=== PATIENT | female | born 2000 | race Caucasian/White ===

== ENCOUNTER 2020-03-26 19:20 | Emergency (ER) | payer MEDICAID, SELFPAY ==
[2020-03-26 19:30] VITALS: BP 114/76; PULSE 67; RESP 16; TEMP 36.4; O2SAT 99; BMI 30.9
--- NOTE | 2020-03-26 19:44 | XRR_ITS ---
PROCEDURE INFORMATION: Exam: XR Right Hand Exam date and time: 03/26/2020 8:00 PM Age: 19 years old Clinical indication: Pain; Hand; Right; Additional info: Fb and pain RT hand not acute TECHNIQUE: Imaging protocol: XR Right hand. Views: 3 or more views. COMPARISON: No relevant prior studies available. FINDINGS: Bones/joints: Normal. Soft tissues: No soft tissue foreign body. XR/XR hand RT min 3V* [id number] IMPRESSION: No acute findings.
--- NOTE | 2020-03-26 19:45 | ED_ITS ---
HPI - Extremity Problem General: Chief complaint: Extremity Injury, Upper Stated complaint: rt hand/fall/ healed with foreign object Time Seen by Provider: 03/26/20 19:23 Source: patient and family (father) Mode of arrival: ambulatory Limitations: no limitations History of Present Illness: HPI Narrative: 19-year-old female patient presents to the emergency department with right hand problem. She reports approximately 1 month ago, fell with her right arm extended, she sustained a laceration and gravel into the proximal palm of the right hand. The wound has now healed. She reports mild discomfort when she presses on the area, questions of foreign body remains in the right hand. She denies fever chills or redness to the area. MD Complaint: extremity pain Location: right and upper extremity (hand) Quality: aching and dull Radiation: none Relieving factors: other (not to press on the area) Exacerbating factors: other (pressing on the affected site) Associated symptoms: Reports no associated symptoms; Deny chest pain, fever(s) or rash Review of Systems General: Reports: 10 or more systems reviewed and unremarkable except in HPI and below Const: Denies: fever(s), chills or diaphoresis Eyes: Denies: blurry vision or eye redness ENMT: Denies: throat pain, dental pain or disequilibrium Card: Denies: chest pain, palpitations or irregular heart rhythm Resp: Denies: dyspnea, productive cough, non-productive cough or wheezing GI: Denies: abdominal pain, nausea or vomiting : Denies: difficulty voiding or dysuria Musc: Reports: extremity pain (proximal central rt hand); Denies: neck pain, back pain, extremity swelling, joint swelling, joint stiffness, muscle cramps or muscle weakness Skin/Breast: Denies: rash or pruritus Neuro: Denies: headache(s), weakness in extremities or behavioral changes Psych: Denies: anxiety or depression Gabriel/Lymph: Denies: easy bruising PFSH ED PFSH: Medical History (Updated 03/26/20 @ 20:19 by KAYE Wild) Post-traumatic stress disorder, chronic Surgical History (Updated 03/26/20 @ 19:47 by KAYE Wild) No pertinent past surgical history Social History (Updated 03/14/19 @ 11:18 by Mariella Gant LPN) Smoking and tobacco status: never smoked Second hand smoke exposure: No Alcohol intake: never History of recent travel: No Female Reproductive History: Date of last menstrual period: 03/24/20 Physical Exam Const: COMMON NORMALS: no acute distress, patient oriented x3, healthy ap pearing and alert GENERAL APPEARANCE: cooperative, comfortable and well hydrated HENMT: COMMON NORMALS: normocephalic, Normal external nose present and moist oral mucous membranes HEAD & SCALP: normocephalic NOSE: Normal external nose present Eye: COMMON NORMALS: Equal, round and reactive pupils present and EOMs intact bilaterally GENERAL EYE: appearance normal, both eyes and all related structures PUPIL: Yes Equal, round and reactive pupils present Neck/C-Spine: COMMON NORMALS: full ROM and no lymphadenopathy GENERAL: Yes normal visual inspection and Yes trachea midline CERVICAL SPINE: Yes cervical ROM normal Lymph: LYMPHATIC: no lymphadenopathy noted Chest: COMMONS NORMALS: normal inspection of the chest Resp: COMMON NORMALS: normal respiratory effort and clear to auscultation b ilaterally AUSCULTATION: clear to auscultation bilaterally Cardio: COMMON NORMALS: regular rhythm, S1 normal heart sound present and S2 normal heart sound present RHYTHM: regular rhythm HEART SOUNDS: S1 normal heart sound present and S2 normal heart sound present GI: COMMON NORMALS: Soft to palpation and non-tender INSPECTION: Yes normal to inspection PALPATION: Yes Soft to palpation : COMMON NORMALS: Yes no CVA tenderness BLADDER/KIDNEY EXAM: Yes no CVA tenderness Back/Pelvis: COMMON NORMALS: no CVA tenderness and thoracic and lumbar spine normal to inspection Extremity: COMMON NORMALS: normal to inspection, full ROM, capillary refill normal, no clubbing, cyanosis or edema, no calf tenderness and no pedal edema GENERAL: Yes normal exam except as noted LEFT UPPER EXTREMITY: Yes hand & digits Left hand and digits: Yes inspection (healed wound to the proximal palm, central, no erythema/ FB with palp), Yes palpation (normal), Yes ROM (full supination/pronation/flexion/extension to all digits and hand/wrist), Yes neurovascular exam (distally intact) and Yes tendon exam Neuro: COMMON NORMALS: patient oriented x3 and no focal motor deficits SE NSORIUM/ORIENTATION: Yes alert Psych: COMMON NORMALS: mental status grossly normal, Normal thought process present and cooperative ACTIVITY/MOTOR BEHAVIOR: Yes appropriate eye contact THOUGHT PROCESS: Normal thought process present Skin: COMMON NORMALS: no rashes or lesions noted, no wounds, turgor normal and no mottling GENERAL SKIN EXAM: no rashes or lesions noted, elasticity normal, turgor normal, no ecchymo and scars (rt proximal palm) Course Vital Signs: Vital signs: Vital Signs Temperature 97.5 F L 03/26/20 19:30 Pulse Rate 67 03/26/20 19:30 Respiratory Rate 16 03/26/20 19:30 Blood Pressure 114/76 03/26/20 19:30 Pulse Oximetry 99 03/26/20 19:30 MDM - Extremity (Nontraumatic) Imaging Data^: Xray Ortho: My impression: Right hand series; radiopaque object noted at the proximal first MCP, visualized on dorsal views, not appreciated on lateral view. Radiology interpretation pending. No acute fracture appreciated. Discharge Plan Discharge Patient Disposition: Home Clinical Impression: Foreign body hand Qualifiers: Encounter type: initial encounter Laterality: right Qualified Code(s): S60.551A - Superficial foreign body of right hand, initial encounter Condition: Stable Prescriptions: No Action No Known Home Medications RF: 0 Discharge Orders: Discharge ED (Routine); Ordered 03/26/20 Ordered By: Lexus Woods Referrals: Isauro Crowe FNP [Primary Care Provider] - Discharge Diet: Usual diet Discharge Activity: Resume usual activity Patient Instructions: Soft Tissue Foreign Body (ED), Opioid Safety Activity Restrictions/Additional Instructions: Return to the emergency department for concerning symptoms Continue follow-up with your primary care, in the next 7 to 10 days, avoid pre ssure on the area Return to the emergency department if you develop inability to move your wrist or redness swelling to the area. Coding Level of Care Code ED Break Off Worker for Ady Fwd Exam Comprehensive
== END 2020-03-26 20:25 | disposition home or self-care (01) ==
PROVIDERS: Emergency Provider Nurse Practitioner Family; PCP Nurse Practitioner Family
DX: S60.551A Superficial foreign body of right hand, initial encounter (principal); W18.30XA Fall on same level, unspecified, initial encounter
CPT/HCPCS: 12345; 73130; 99281; 99282

== ENCOUNTER → 2022-02-03 10:59 | Outpatient (BNVA) | payer MEDICAID, SELFPAY | PROVIDERS: PCP Family Medicine; Visit Provider Family Medicine | DX: D64.9 Anemia, unspecified (principal); Z13.1 Encounter for screening for diabetes mellitus | CPT/HCPCS: 80053; 83540; 83550; 85025 ==

== ENCOUNTER → 2024-01-25 14:36 | Outpatient (BNVA) | payer MEDICAID, SELFPAY | PROVIDERS: PCP Family Medicine; Visit Provider Family Medicine | DX: Z13.6 Encounter for screening for cardiovascular disorders (principal); Z13.1 Encounter for screening for diabetes mellitus; D50.0 Iron deficiency anemia secondary to blood loss (chronic); N92.6 Irregular menstruation, unspecified | CPT/HCPCS: 80053; 80061; 83036; 84403; 84443; 85025 ==